=== PATIENT | female | born 1965 | race Caucasian/White ===

== ENCOUNTER → 2016-11-12 | Outpatient (CLI) | payer OTHER ==
[~2016-11-12] MED LIST: ACET-1256 PO; OXYC1TAB3 PO
[2016-11-12 18:24] LABS: BASO ABS # 0.06 K/uL (0-0.2); COMPLETE YES; HEMATOCRIT 41.8 % (37-47); IG% 0.2 %; LYMPH % 34.4 %; LYMPH ABS # 2.08 K/uL (1.2-3.4); MEAN CELL VOLUME 97.2 fL (80-100); MEAN CORPUSCULAR HEMOGLOBIN 32.8 pg (25-34); MEAN CORPUSCULAR HGB CONC 33.7 g/dl (32-36); MONO % 7.8 %; NEUT % 52.6 %; PLATELET COUNT 194 K/uL (130-400); WHITE BLOOD COUNT 6.05 K/uL (4.8-10.8)
[2016-11-12 18:39] LABS: ALT/SGPT 23 U/L (12-78); AST/SGOT 9 U/L (15-37); BLOOD UREA NITROGEN 19 mg/dl (7-18); BUN/CREATININE RATIO 21.3 (10-20); CALCIUM 8.7 mg/dl (8.5-10.1); CARBON DIOXIDE 27 mmol/L (21-32); CHLORIDE 109 mmol/L (98-107); CREATININE 0.87 mg/dl (0.60-1.20); GLUCOSE 84 mg/dl (70-99); POTASSIUM 3.9 mmol/L (3.5-5.1); SODIUM 145 mmol/L (136-145)
[2016-11-12 18:49] LABS: ALB/GLOB RATIO 1.2 (0.9-2); ALKALINE PHOSPHATASE 72 U/L (45-117)
[2016-11-12 20:01] LABS: LYME DISEASE AB IGG NEG (NEG); LYME DISEASE AB IGM NEG (NEG)
[2016-11-13 06:41] LABS: ESTIMATED AVERAGE GLUCOSE 103 mg/dl; HA1C FLAG Normal (Normal)
== END | disposition home or self-care (01) ==
LOC: C.LABMFLN 14:47
PROVIDERS: ATTEND Family Medicine
DX: R23.2 Flushing (principal); G62.9 Polyneuropathy, unspecified

== ENCOUNTER → 2017-03-24 | Outpatient (CLI) | payer OTHER ==
[~2017-03-24] MED LIST changes: +ASCO500T16 PO; +CHOL1000 PO; +CYAN500T13 PO; +GABA-113 PO; +MELO7.5T5 PO
--- NOTE | 2017-03-24 12:41 | DIAGNOSTIC IMAGING REPORT ---
LEFT ANKLE MIN 3 VIEWS ROUTINE CLINICAL HISTORY: ANKLE PAIN pain COMPARISON: None. DISCUSSION: No acute bony abnormality. Heel spur. Ankle is aligned anatomically. Cortical margins appear to be intact. There is no evidence for soft tissue swelling. IMPRESSION: Heel spur. No acute bony abnormality. Electronically signed by: Vincenzo El M.D. 03/24/2017 12:40 PM Dictated Date/Time: 03/24/2017 12:39 PM
--- NOTE | 2017-03-24 12:43 | DIAGNOSTIC IMAGING REPORT ---
RIGHT FOOT 3 VIEWS CLINICAL HISTORY: Chronic right foot pain. FINDINGS: 3 views of the right foot are obtained. No prior studies are available for comparison at the time of dictation. The skeletal structures are well mineralized. No fracture is seen. The fifth proximal phalanx appears diminutive. No similar changes are seen in the remaining phalanges. No erosive change is clearly seen. The joint spaces are preserved. The overlying soft tissues are within normal limits. A tiny plantar calcaneal enthesophyte is noted. IMPRESSION: 1. No acute bony abnormality is seen in the right foot. 2. The fifth proximal phalanx is diminutive. This may be on a congenital basis. Clinical correlation will be required. Electronically signed by: Atif Hsu M.D. 03/24/2017 12:42 PM Dictated Date/Time: 03/24/2017 12:39 PM
--- NOTE | 2017-03-24 12:46 | DIAGNOSTIC IMAGING REPORT ---
LEFT FOOT MIN 3 VIEWS ROUTINE CLINICAL HISTORY: PAIN,FOOT,CHRONIC pain COMPARISON: None. DISCUSSION: No acute bony abnormality. Cortical margins appear to be intact. No evidence for abnormal periosteal reaction. Findings of prior partial resection distal aspect proximal phalanx fifth toe. This is a nonacute finding. Heel spur. Subtalar joint is unremarkable. There is no evidence for soft tissue swelling. IMPRESSION: Findings of degenerative and postoperative change. Heel spur. No acute bony abnormality. Electronically signed by: Vincenzo El M.D. 03/24/2017 12:45 PM Dictated Date/Time: 03/24/2017 12:43 PM
== END | disposition home or self-care (01) ==
LOC: C.RAD1850 12:06
PROVIDERS: ATTEND Family Medicine
DX: M25.572 Pain in left ankle and joints of left foot (principal); M79.672 Pain in left foot; M79.671 Pain in right foot; M77.32 Calcaneal spur, left foot; M19.072 Primary osteoarthritis, left ankle and foot; R93.7 Abnormal findings on diagnostic imaging of other parts of musculoskeletal system

== ENCOUNTER → 2017-06-10 | Outpatient (CLI) | payer BC ==
[~2017-06-10] MED LIST changes: -ASCO500T16 PO; -CHOL1000 PO; -CYAN500T13 PO; -GABA-113 PO; -MELO7.5T5 PO
[2017-06-10 11:05] LABS: URINE APPEARANCE CLEAR (CLEAR); URINE BILIRUBIN NEG (NEG); URINE COLOR YELLOW; URINE EPITHELIAL CELL AUTO 20-30 /lpf (0-5); URINE NITRITE NEG (NEG); URINE PH 5.5 (4.5-7.5); URINE SPECIFIC GRAVITY 1.023 (1.000-1.030); UROBILINOGEN NEG (NEG)
[2017-06-10 11:13] LABS: MANUAL MICROSCOPIC REQUIRED? NO; REVIEW REQ? NO
== END | disposition home or self-care (01) ==
LOC: C.LAB 12:02
PROVIDERS: ATTEND Family Medicine
DX: N39.0 Urinary tract infection, site not specified (principal)

== ENCOUNTER → 2017-06-15 | Outpatient (CLI) | payer BC, OTHER ==
[2017-06-15 11:32] LABS: CHOLESTEROL/HDL RATIO 2.9
[2017-06-18 14:37] LABS: ALBUMIN 4.3 G/DL (3.8-4.8); GAMMA GLOBULIN 0.8 G/DL (0.8-1.7); TOTAL PROTEIN 6.7 G/DL (6.2-8.3); VITAMIN B6** TC 926 11.2 ng/mL (2.1-21.7)
== END | disposition home or self-care (01) ==
LOC: C.LABSPEC 16:29
PROVIDERS: ATTEND Family Medicine
DX: G60.9 Hereditary and idiopathic neuropathy, unspecified (principal)

== ENCOUNTER → 2017-07-30 | Outpatient (CLI) | payer BC ==
--- NOTE | 2017-07-30 12:29 | MAMMOGRAPHY REPORT ---
BILATERAL DIGITAL SCREENING MAMMOGRAM TOMOSYNTHESIS WITH CAD: 07/30/2017 CLINICAL HISTORY: Routine screening. Patient has no complaints. TECHNIQUE: Breast tomosynthesis in addition to standard 2D mammography was performed. Current study was also evaluated with a Computer Aided Detection (CAD) system. COMPARISON: Comparison is made to exams dated: 04/15/2016 mammogram, 04/13/2015 mammogram, 01/25/2014 m ammogram, 01/03/2011 mammogram, 01/10/2013 mammogram, and 01/09/2012 mammogram - [facility]. BREAST COMPOSITION: There are scattered areas of fibroglandular density in both breasts. FINDINGS: No suspicious masses, calcifications, or areas of architectural distortion are noted in ei ther breast. There has been no significant interval change compared to prior exams. Left medial katelin st asymmetry on the cc view is stable dating back to at least the 2008 exam. IMPRESSION: ACR BI-RADS CATEGORY 2: BENIGN There is no mammographic evidence of malignancy. A 1 year screening mammogram is recommended. The pa tient will receive written notification of the results. Approximately 10% of breast cancers are not detected with mammography. A negative mammographic report should not delay biopsy if a clinically suggestive mass is present. Marly Mac M.D. ah/:07/30/2017 07:44:26 Parboiler: Ronda MANN)(M), [facility] letter sent: Normal 1/2 BI-RADS Code: ACR BI-RADS Category 2: Benign
== END | disposition home or self-care (01) ==
LOC: C.MAMM 07:14
PROVIDERS: ATTEND Obstetrics & Gynecology
DX: Z12.31 Encounter for screening mammogram for malignant neoplasm of breast (principal)

== ENCOUNTER → 2017-10-05 | Outpatient (CLI) | payer BC ==
[~2017-10-05] MED LIST changes: -ACET-1256 PO; +ASCO500T16 PO; +CHOL1000 PO; +CYAN500T13 PO; +GABA-113 PO; +MELO7.5T5 PO
--- NOTE | 2017-10-05 14:44 | DIAGNOSTIC IMAGING REPORT ---
L FOOT MIN 3 VIEWS CLINICAL HISTORY: Left foot fracture. COMPARISON: Left foot radiograph September 05, 2017 per FINDINGS: Alignment of the left tarsometatarsal joints is anatomic. Note is made of a 6 mm linear radiodensity which projects over the plantar aspect of the anterior process of the calcaneus shown only on lateral projection. There is a nondisplaced fracture within the base of the left fifth metatarsal with intra-articular extension. Fracture line is more conspicuous than on prior exam. There is no significant callus formation. There may be slight sclerosis along the fracture margins. Deformity of the distal aspect of the proximal phalanx of left fifth toe is chronic and may be postsurgical. No additional fractures are identified. IMPRESSION: 1. Nondisplaced fracture within the base of the left fifth metatarsal with intra-articular extension. No significant callus formation. Suggestion of slight sclerosis along the fracture margins. 2. 6 mm linear radiodensity projecting over the plantar aspect of the anterior process of the calcaneus on lateral projection. This is not shown on the other views. Artifact is favored although a radiopaque foreign body could appear similar. This was not present on prior exam. Electronically signed by: Carlos Summers M.D. 10/05/2017 2:43 PM Dictated Date/Time: 10/05/2017 2:39 PM
== END | disposition home or self-care (01) ==
LOC: C.RDSM 14:00
PROVIDERS: ATTEND Family Medicine
DX: S92.352A Displaced fracture of fifth metatarsal bone, left foot, initial encounter for closed fracture (principal); X58.XXXA Exposure to other specified factors, initial encounter

== ENCOUNTER → 2017-10-19 | Outpatient (CLI) | payer BC ==
--- NOTE | 2017-10-19 16:53 | DIAGNOSTIC IMAGING REPORT ---
L FOOT MIN 3 VIEWS CLINICAL HISTORY: 51 years-old Female presenting with LEFT FOOT PAIN. TECHNIQUE: Frontal, oblique, and lateral views of the left foot were obtained. COMPARISON: 10/05/2017. FINDINGS: Previously noted nondisplaced fracture at the base of the fifth metatarsal remains apparent. No commencing evidence of greater osseous bridging. No malalignment. The previously noted linear radiopaque foreign body in the plantar soft tissues is no longer apparent. Prominent enthesophyte at the origin of the plantar fascia. Posttraumatic changes of the proximal interphalangeal joint of the fifth toe, unchanged. IMPRESSION: No significant change in appearance of the fracture at the base of the fifth metatarsal with apparent nonunion. Electronically signed by: Carlin Berkowitz M.D. 10/19/2017 4:51 PM Dictated Date/Time: 10/19/2017 4:49 PM
== END | disposition home or self-care (01) ==
LOC: C.RDSM 13:52
PROVIDERS: ATTEND Family Medicine
DX: M79.672 Pain in left foot (principal)

== ENCOUNTER → 2017-11-10 | Outpatient (CLI) | payer BC ==
--- NOTE | 2017-11-10 16:54 | DIAGNOSTIC IMAGING REPORT ---
L FOOT MIN 3 VIEWS CLINICAL HISTORY: LEFT FOOT PAIN COMPARISON: 10/19/2017 DISCUSSION: The bones are mildly osteopenic. There is a healing transverse fracture through the base of the fifth metatarsal. The fracture line is still visualized. There is a plantar calcaneal spur. IMPRESSION: No change in the alignment of the transverse fracture through the base the fifth metatarsal. The fracture line while still visualized is less conspicuous. Electronically signed by: Rohan Coulter M.D. 11/10/2017 4:52 PM Dictated Date/Time: 11/10/2017 4:51 PM
== END | disposition home or self-care (01) ==
LOC: C.RDSM 10:21
PROVIDERS: ATTEND Family Medicine
DX: M79.672 Pain in left foot (principal)

== ENCOUNTER → 2017-12-15 | Outpatient (CLI) | payer BC ==
--- NOTE | 2017-12-15 16:06 | DIAGNOSTIC IMAGING REPORT ---
L FOOT MIN 3 VIEWS CLINICAL HISTORY: 52 years-old Female presenting with NONDISPLACED FX OF LEFT 5TH METATARSAL BONE. TECHNIQUE: Frontal, oblique, and lateral views of the left foot were obtained. COMPARISON: 11/10/2017. FINDINGS: Redemonstration of the nondisplaced fracture of the base of the fifth metatarsal, which extends into the cuboid-fifth metatarsal articulation. The fracture plane is less apparent. No new malalignment. Mild subcutaneous edema may be present diffusely. No new abnormality. Enthesophyte at the inferior calcaneus noted. IMPRESSION: Continued decreased visualization of the nondisplaced intra-articular fracture plain at the base of the fifth metatarsal. No new malalignment. Electronically signed by: Carlin Berkowitz M.D. 12/15/2017 4:05 PM Dictated Date/Time: 12/15/2017 4:03 PM
== END | disposition home or self-care (01) ==
LOC: C.RDSM 15:49
PROVIDERS: ATTEND Family Medicine
DX: S92.355G Nondisplaced fracture of fifth metatarsal bone, left foot, subsequent encounter for fracture with delayed healing (principal); X58.XXXD Exposure to other specified factors, subsequent encounter; Z88.0 Allergy status to penicillin

== ENCOUNTER → 2018-05-20 | Outpatient (CLI) | payer OTHER ==
[~2018-05-20] MED LIST changes: -OXYC1TAB3 PO
== END | disposition home or self-care (01) ==
LOC: C.LABMFLN 07:09
PROVIDERS: ATTEND Family Medicine
DX: M15.9 Polyosteoarthritis, unspecified (principal); Z13.220 Encounter for screening for lipoid disorders; Z13.1 Encounter for screening for diabetes mellitus

== ENCOUNTER 2019-12-31 01:37 | Inpatient (IN) ==
[2019-12-31] MEDS ORDERED: SODIUM CHLORIDE 0.9% 1000ML 1,000 ML IV SCH (02:15)
[2019-12-31] MEDS ORDERED: KETOROLAC 30 MG/ML VIAL IV STA (02:15)
[2019-12-31] MEDS ORDERED: ONDANSETRON INJ 2 MG/ML 2 ML VIAL IV STA (02:15)
[2019-12-31] MEDS: MoRPHine SULFATE 4 MG/ML 1 ML CARP\\VIAL IV PRN ×2 (02:24→05:48)
[2019-12-31 02:27] LABS: Basophils # (auto) 0.02 K/uL (0-0.2); Basophils % (auto) 0.2 %; Eosinophils # (auto) 0.08 K/uL (0-0.5); Eosinophils % (auto) 0.9 %; Hematocrit (blood only) 42.5 % (37-47); Hemoglobin 14.3 g/dL (12.0-16.0); Immature Granulocytes # (auto) 0.01 K/uL (0.00-0.02); Immature Granulocytes % (auto) 0.1 %; Lymphocytes # (auto) 1.19 K/uL (1.2-3.4); Mean Corpuscular Hemoglobin 32.6 pg (25-34); Mean Corpuscular Hgb Conc 33.6 g/dL (32-36); Mean Corpuscular Volume 96.8 fL (80-100); Mean Platelet Volume 11.2 fL (7.4-10.4); Monocytes # (auto) 0.38 K/uL (0.11-0.59); Monocytes % (auto) 4.5 %; Neutrophils # (auto) 6.83 K/uL (1.4-6.5); Neutrophils % (auto) 80.3 %; Platelet Count 172 K/uL (130-400); RDW Coefficient of Variation 12.6 % (11.5-14.5); RDW Standard Deviation 44.9 fL (36.4-46.3); Red Blood Count 4.39 M/uL (4.2-5.4); White Blood Count 8.51 K/uL (4.8-10.8)
[2019-12-31 02:53] LABS: Albumin Level 3.6 gm/dl (3.4-5.0); BUN Creatinine Ratio 16.7 (10-20); Calcium 9.1 mg/dl (8.5-10.1); Creatinine Clr Calc Pharmacy 59.9 ml/min; Est GFR (African American) 61.4; Potassium 3.3 mmol/L (3.5-5.1)
[2019-12-31 02:55] LABS: Albumin Globulin Ratio 1.1 (0.9-2); Bilirubin,Total 0.3 mg/dl (0.2-1); Globulin 3.3 gm/dl (2.5-4.0); Total Protein 6.9 gm/dl (6.4-8.2)
[2019-12-31 04:11] LABS: Appearance Urine Clear (Clear); Bacteria Urine Automated Negative (Negative); Bilirubin Urine Negative (Negative); Blood Urine 2+ (Negative); Color Urine Yellow; Glucose Urine UA Negative (Negative); Ketones Urine Negative (Negative); Leukocyte Esterase Urine Trace (Negative); Nitrite Urine Negative (Negative); Protein Urine Negative (Negative); RBC Urine Automated >30 /hpf (0-4); Specific Gravity Urine 1.014 (1.000-1.030); Urobilinogen Urine Negative (Negative); pH Urine 7.5 (4.5-7.5)
--- NOTE | 2019-12-31 05:21 | History & Physical Report ---
Date of Service December 31, 2019 Assessment & Plan (1) Calculus of distal left ureter: 5 mm distal left UVJ stone/mild to moderate left hydronephrosis- NPO NSS + KCl 20 mEq 100 mils per hour. Acetaminophen 650 mg p.o. every 6 hours PRN mild pain or temperature. Continue tamsulosin 0.4 mg daily Dilaudid 0.2 mg IV every 3 hours as needed severe pain. Zofran 4 mg IV every 6 hours as needed nausea or vomiting Follow urine culture and sensitivity. Cipro 400 mg IV every [address] Haley who is covering for Dr. Carranza. Present on Admission?: Yes (2) Hydronephrosis of left kidney: See above Present on Admission?: Yes (3) Anxiety: Continue Lexapro 10 mg p.o. bedtime. Present on Admission?: Yes (4) Benign essential hypertension: Continue metoprolol succinate 12.5 mg p.o. at bedtime. Present on Admission?: Yes (5) Idiopathic peripheral neuropathy: Gabapentin 600 mg p.o. twice daily Present on Admission?: Yes History of Present Illness Chief Complaint: The patient presents to the emergency department with complaint of left flank and lower abdomen and pelvic pain, with having had a KUB done as an outpatient which showed a 2.5 mm left ureteral stone. Primary Care Provider: Tamera Swenson MD The patient is a 54-year-old female with a past medical history including kidney stones, mixed incontinence, chronic UTIs, incomplete bladder emptying, hysterectomy, foot surgery, , spinal fusion, allergic rhinitis, anxiety, benign essential hypertension, idiopathic peripheral neuropathy and mild mitral regurgitation. She presents to the emergency department with an outside KUB performed which showed an approximate 2.5 mm left ureteral stone as a cause of her left flank and lower abdominal and pelvic pain. She follows with Dr. Corbin from urology for routine urologic care, and reports that her last kidney stone was about the year 2005 or 7. Allergies Allergy/AdvReac Type Severity Reaction Status Date / Time nitrofurantoin Allergy Severe Hives,SOB Verified 12/31/19 02:33 [From Macrobid] fexofenadine [From Lisa-D] Allergy Intermediate Hypertensio Verified 12/31/19 02:33 n Penicillins Allergy Intermediate HIVES Verified 02/29/20 02:33 pseudoephedrine Allergy Intermediate Hypertensio Verified 12/31/19 02:33 [From Lisa-D] n sulfamethoxazole Allergy Intermediate Nausea Verified 12/31/19 02:33 [From Bactrim] trimethoprim [From Bactrim] Allergy Intermediate nausea, Verified 12/31/19 02:33 diarrhea meperidine AdvReac Mild VOMITING Verified 12/31/19 02:33 Home Medications Home Medications Medication Instructions Recorded Confirmed Type metoprolol succinate 25 mg 12.5 mg PO HS #45 tab 04/15/19 12/31/19 Rx tablet,extended release 24 hr cyclobenzaprine 10 mg PO TID PRN 06/14/19 12/31/19 History gabapentin 600 mg tablet 600 mg PO BID #180 tab 10/03/19 12/31/19 Rx escitalopram oxalate 10 mg tablet 10 mg PO HS #90 tab 11/29/19 12/31/19 Rx methenamine hippurate 1 gram tablet 1 gm PO DAILY #90 tab 12/15/19 12/31/19 Rx tamsulosin 0.4 mg capsule 0.4 mg PO DAILY cap 12/16/19 12/31/19 History ciprofloxacin HCl 500 mg tablet 500 mg PO BID 7 Days #14 tab 12/30/19 12/31/19 Rx tramadol 50 mg tablet 50 mg PO TID PRN #14 tab 12/30/19 12/31/19 Rx Past Med/Surg History Social History Preferred Language: Indonesian Communication Ability: Effective Concession Supervisor Required: No Beliefs That Will Affect Care: None marital status: Current Living Situation: Spouse and Family current occupational status: employed Feels Safe at Home: Yes Smoking Status: Never smoker Second Hand Exposure: No ; Hx Alcohol Use: Yes Alcohol type: wine and hard liquor Hx Substance Use: No Review of Systems Review of Systems: The patient denies chest pain, palpitations, shortness of breath, dyspnea on exertion, cough, lower extremity swelling, sore throat, fevers, chills, sweats, vomiting, diarrhea , constipation, blood in stool, urinary frequency or urgency, lightheadedness, dizziness, headache, memory loss, loss of consciousness, rash, abnormal bruising or bleeding, imbalance, focal or generalized weakness, numbness or tingling in arms or legs, generalized arthralgias or myalgias, neck pain, or night sweats. The review of systems is otherwise negative other than for that already noted above, and at least 10 systems have been reviewed. Physical Exam Physical Exam: The patient is awake, alert and oriented 3, well developed and well nourished, normocephalic and atraumatic, lying in bed and in no acute distress. HEENT--PERRL, EOMI, mucous membranes and oropharynx dry. Neck--supple. No JVD. No bruits. Thyroid normal, trachea midline, no adenopathy. Heart--normal S1 and S2. No murmurs, rubs or gallops. Lungs--clear bilaterally, no respiratory distress, no accessory muscle use. Abdomen--normal bowel sounds and soft. Nontender. Nondistended. Extremities--no cyanosis or clubbing. No edema. There are good distal pulses b/l. Dermatologic--normal skin turgor, normal color, no abnormal lymph nodes, no rash. Neurologic--cranial nerves II through XII grossly intact. Rheumatologic--normal range of motion. Psychiatric--normal affect. Results & Data Vital Signs (Past 12 Hours) Vital Signs Pulse Pulse Resp BP BP Pulse Ox 12/31/19 03:48 89 18 126/83 94 12/31/19 01:51 89 24 160/91 H 99 Laboratory Results Laboratory Results WBC 8.51 K/uL (4.8-10.8) 12/31/19 02:19 RBC 4.39 M/uL (4.2-5.4) 12/31/19 02:19 Hgb 14.3 g/dL (12.0-16.0) 12/31/19 02:19 Hct 42.5 % (37-47) 12/31/19 02:19 MCV 96.8 fL (80-100) 12/31/19 02:19 MCH 32.6 pg (25-34) 12/31/19 02:19 MCHC 33.6 g/dL (32-36) 12/31/19 02:19 RDW Std Deviation 44.9 fL (36.4-46.3) 12/31/19 02:19 RDW Coeff of Tong 12.6 % (11.5-14.5) 12/31/19 02:19 Plt Count 172 K/uL (130-400) 12/31/19 02:19 MPV 11.2 fL (7.4-10.4) H 12/31/19 02:19 Immature Gran % (Auto) 0.1 % 12/31/19 02:19 Neut % (Auto) 80.3 % 12/31/19 02:19 Lymph % (Auto) 14.0 % 12/31/19 02:19 [place] % (Auto) 4.5 % 12/31/19 02:19 Eos % (Auto) 0.9 % 12/31/19 02:19 Baso % (Auto) 0.2 % 12/31/19 02:19 Immature Gran # (Auto) 0.01 K/uL (0.00-0.02) 12/31/19 02:19 Neut # (Auto) 6.83 K/uL (1.4-6.5) H 12/31/19 02:19 Lymph # (Auto) 1.19 K/uL (1.2-3.4) L 12/31/19 02:19 [place] # (Auto) 0.38 K/uL (0.11-0.59) 12/31/19 02:19 Eos # (Auto) 0.08 K/uL (0-0.5) 12/31/19 02:19 Baso # (Auto) 0.02 K/uL (0-0.2) 12/31/19 02:19 Sodium 141 mmol/L (136-145) 12/31/19 02:19 Potassium 3.3 mmol/L (3.5-5.1) L 12/31/19 02:19 Chloride 110 mmol/L (98-107) H 12/31/19 02:19 Carbon Dioxide 27 mmol/L (21-32) 12/31/19 02:19 Anion Gap 4.0 (3-11) 12/31/19 02:19 BUN 20 mg/dl (7-18) H 12/31/19 02:19 Creatinine 1.18 mg/dl (0.6-1.2) 12/31/19 02:19 Est Cr Clr Drug Dosing 59.9 ml/min 12/31/19 02:19 Est GFR ( Amer) 61.4 12/31/19 02:19 Est GFR (Non-Af Amer) 53.0 12/31/19 02:19 BUN/Creatinine Ratio 16.7 (10-20) 12/31/19 02:19 Glucose 137 mg/dl (70-99) H 12/31/19 02:19 Calcium 9.1 mg/dl (8.5-10.1) 12/31/19 02:19 Total Bilirubin 0.3 mg/dl (0.2-1) 12/31/19 02:19 AST 17 U/L (15-37) 12/31/19 02:19 ALT 24 U/L (12-78) 12/31/19 02:19 Alkaline Phosphatase 109 U/L (45-117) 12/31/19 02:19 Total Protein 6.9 gm/dl (6.4-8.2) 12/31/19 02:19 Albumin 3.6 gm/dl (3.4-5.0) 12/31/19 02:19 Globulin 3.3 gm/dl (2.5-4.0) 12/31/19 02:19 Albumin/Globulin Ratio 1.1 (0.9-2) 12/31/19 02:19 Urine Color Yellow 12/31/19 04:02 Urine Appearance Clear (Clear) 12/31/19 04:02 Urine pH 7.5 (4.5-7.5) 12/31/19 04:02 Ur Specific [place] 1.014 (1.000-1.030) 12/31/19 04:02 Urine Protein Negative (Negative) 12/31/19 04:02 Urine Glucose (UA) Negative (Negative) 12/31/19 04:02 Urine Ketones Negative (Negative) 12/31/19 04:02 Urine Blood 2+ (Negative) H 12/31/19 04:02 Urine Nitrite Negative (Negative) 12/31/19 04:02 Urine Bilirubin Negative (Negative) 12/31/19 04:02 Urine Urobilinogen Negative (Negative) 12/31/19 04:02 Ur Leukocyte Esterase Trace (Negative) H 12/31/19 04:02 Urine WBC (Auto) 5-10 /hpf (0-5) H 12/31/19 04:02 Urine RBC (Auto) >30 /hpf (0-4) H 12/31/19 04:02 U Hyaline Cast (Auto) 1-5 /lpf (0-5) 12/31/19 04:02 U Epithel Cells (Auto) 10-20 /lpf (0-5) H 12/31/19 04:02 Urine Bacteria (Auto) Negative (Negative) 12/31/19 04:02 Diagnostic Findings [facility] Patient: AMPARO BERGMAN (Female) : 69 Status: ER Date: 12/31/19 02:59 Room #: History: left flank pain hx stoners Slices: [phone] Priors: Tech: Iglesia Espinoza @ [phone] Exams: CT ABDOMEN & PELVIS Without Contrast Accession Numbers: [id number] Preliminary Findings Only See Final Report For Complete Findings CT ABDOMEN & PELVIS Without Contrast: 5 mm calculus located at the left UVJ. Mild to moderate upstream dilatation of the collecting system. Left renal enlargement and perinephric stranding. Findings are likely obstructive but would correlate clinically to exclude superimposed infection. No appendicitis, free air, free fluid or bowel obstruction. Prior cholecystectomy. Distal colonic diverticulosis. Radiologist: Augustus Chowdhury M.D. Study ready at 03:09 and initial results transmitted at 03:35 *This report constitutes a preliminary interpretation only. Non-acute findings felt to be unrelated to the clinical presentation may not be discussed in this report. The study will be interpreted and a final report will be generated by the local Radiologist the following shift. To reach the hospital radiology department call [phone]. If a discrepancy is found between the preliminary and final interpretations of this study, please notify us via our Client Portal at [email or web address] QA [email or web address].You can also fax this report with a description of the discrepancy, or include the final report, to our daytime fax number [phone].If faxing, please indicate the severity of discrepancy using one of the following categories: [ ] 1 - Agree/Informational [ ] 2 - Unlikely to Affect Management [ ] 3 - Possible Eventual Change of Management [ ] 4 - Probable Immediate Change of Management For all other patient related information, please fax us at [phone]. [id number] Code Status & VTE Plan Code Status Full code VTE Prophylaxis Plan VTE Prophylaxis will be ordered: Yes PG Care Time/CCT Total # of Minutes Spent Total Time Spent with Patient: Total time spent is greater than 50% in coordination of care (as documented) at patient's floor/unit and/or counseling patient: Coding Level of Care Code 63894 Initial Inpt Care Lvl 2 Diagnoses Calculus of distal left ureter N20.1 Hydronephrosis of left kidney N13.30 Anxiety F41.9 Benign essential hypertension I10 Idiopathic peripheral neuropathy G60.9
[2019-12-31] MEDS ORDERED: ACETAMINOPHEN 325 MG TAB PO PRN (06:25)
[2019-12-31] MEDS: ONDANSETRON INJ 2 MG/ML 2 ML VIAL IV PRN ×2 (07:39→17:21)
[2019-12-31] MEDS: HYDROmorphone INJ 0.5 MG/0.5 ML SYR IV PRN ×2 (07:39→19:45)
[2019-12-31] MEDS: NSS + 20MEQ KCL 20 MEQ/1,000 ML BAG IV SCH ×3 (07:40→23:51)
[2019-12-31] MEDS: FAMOTIDINE 20 MG in SYRINGE 3 ML IV SCH ×2 (07:40→19:34)
--- NOTE | 2019-12-31 07:57 | CT Scan Report ---
CT SCAN OF THE ABDOMEN AND PELVIS WITHOUT IV CONTRAST CLINICAL HISTORY: Left flank pain. COMPARISON STUDY: Abdominal CT dated 09/22/2019. TECHNIQUE: CT scan of the abdomen and pelvis is performed from the lung bases to the proximal femora. Images are reviewed in the axial, sagittal, and coronal planes. IV contrast was not administered for this examination as per the referring clinician. A dose lowering technique was utilized adhering to the principles of ALARA. CT DOSE: 675.35 mGy.cm FINDINGS: Lung bases: The heart is normal in size and without pericardial effusion. There is elevation of the r ight hemidiaphragm and bibasilar atelectasis. No airspace consolidation or pleural effusion is seen. A small hiatal hernia is noted. Liver: The unenhanced liver is normal in size, contour, and attenuation. There is mild central intrah epatic biliary ductal dilatation. A 1.5 cm cyst is noted in the left lobe. Gallbladder: Surgically absent noting clips in the gallbladder fossa. Spleen: Normal in size and attenuation. Pancreas: Unremarkable. Adrenal glands: Unremarkable. Kidneys: The unenhanced kidneys are normal in size. The left kidney is edematous. There is a 6 mm obs tructing calculus protruding from the left vesicoureteral junction seen on image #428. This causes mo derate left-sided hydroureteronephrosis. There is associated left-sided perinephric and peripelvic st randing/fluid. There are numerous additional small nonobstructing calculi present in both kidneys whi ch measure up to 5 mm. There is no right-sided hydronephrosis. There is no evidence of contour deform ing renal mass lesion. A circumaortic left renal vein is again noted. Abdominal vasculature: The abdominal aorta is normal in course and caliber noting scattered foci of a therosclerotic calcification. Bowel: There is no bowel obstruction. The appendix is well-visualized and normal. Peritoneum: There is no intraperitoneal free air or abdominal ascites. There is a fat-containing umbi lical hernia. Lymphadenopathy: None. Pelvic viscera: The bladder is normal as visualized. The uterus is surgically absent. Left ovarian fo llicles measure up to 3.1 cm. Skeletal structures: No lytic or blastic lesions are seen. There is lumbosacral spondylosis with post operative change from laminectomy and posterior fusion at L4-L5. IMPRESSION: 1. There is a 6 mm obstructing calculus protruding from the left vesicoureteral junction. This causes moderate left hydroureteronephrosis. 2. There are numerous additional nonobstructing calculi present in both kidneys. 3. Additional findings as above. ACT 112: Negative or not required by law. Electronically signed by: Atif Hsu M.D. 12/31/2019 7:56 AM
[2019-12-31] MEDS: CIPROFLOXACIN 400 MG/200 ML BAG IV SCH ×2 (08:51→19:33)
[2019-12-31] MEDS ORDERED: PROPOFOL IV EMULSION 10 MG/ML 20 ML VIAL IV ONE (09:52)
[2019-12-31] MEDS ORDERED: ONDANSETRON INJ 2 MG/ML 2 ML VIAL ONE (09:52)
[2019-12-31] MEDS ORDERED: LIDOCAINE HCL 2% 2 ML VIAL/AMP(20MG/ML) INFIL ONE (09:52)
[2019-12-31] MEDS ORDERED: DEXAMETHASONE SOD INJ 4 MG/ML VIAL ONE (09:52)
--- NOTE | 2019-12-31 10:01 | Urology Consultation ---
Date of Consultation December 31, 2019 Assessment & Plan (1) Calculus of distal left ureter: Distal left ureteral calculus She has been receiving Cipro on the floor Plan for cystoscopy, left ureteroscopy, laser lithotripsy and stent placement Risks, benefits, alternatives discussed as she is very anxious to move forward with surgery SERGO Consent on the chart, plan for OR this morning History of Present Illness Attending Physician: Real Murdock History of Present Illness 54-year-old female with a long history of kidney stones and urinary issues who follows with us as an outpatient but had an sudden change in symptoms starting 24 hours ago This necessitated an ER visit secondary to significant left flank pain and nausea Upon arrival in the ER she was scanned and found to have a distal left ureteral calculus with moderate hydronephrosis. She additionally has bilateral renal stones She is subjectively improved this morning but still with pain She would very much like to have her stones treated She has been afebrile She is nontoxic Allergies Allergy/AdvReac Type Severity Reaction Status Date / Time nitrofurantoin Allergy Severe Hives,SOB Verified 12/31/19 02:33 [From Macrobid] fexofenadine [From Lisa-D] Allergy Intermediate Hypertensio Verified 12/31/19 02:33 n Penicillins Allergy Intermediate HIVES Verified 12/31/19 02:33 pseudoephedrine Allergy Intermediate Hypertensio Verified 12/31/19 02:33 [From Lisa-D] n sulfamethoxazole Allergy Intermediate Nausea Verified 12/31/19 02:33 [From Bactrim] trimethoprim [From Bactrim] Allergy Intermediate nausea, Verified 12/31/19 02:33 diarrhea meperidine AdvReac Mild VOMITING Verified 12/31/19 02:33 Home Medications Home Medications Medication Instructions Recorded Confirmed Type metoprolol succinate 25 mg 12.5 mg PO HS #45 tab 04/15/19 12/31/19 Rx tablet,extended release 24 hr cyclobenzaprine 10 mg PO TID PRN 06/14/19 12/31/19 History gabapentin 600 mg tablet 600 mg PO BID #180 tab 10/03/19 12/31/19 Rx escitalopram oxalate 10 mg tablet 10 mg PO HS #90 tab 11/29/19 12/31/19 Rx methenamine hippurate 1 gram tablet 1 gm PO DAILY #90 tab 12/15/19 12/31/19 Rx tamsulosin 0.4 mg capsule 0.4 mg PO DAILY cap 12/16/19 12/31/19 History ciprofloxacin HCl 500 mg tablet 500 mg PO BID 7 Days #14 tab 12/30/19 12/31/19 Rx tramadol 50 mg tablet 50 mg PO TID PRN #14 tab 12/30/19 12/31/19 Rx Patient History Medical History Accidental needlestick injury with exposure to body fluid (Inactive) Allergic rhinitis (Chronic) Anxiety (Chronic) Arthritis Benign essential hypertension (Chronic) Generalized osteoarthritis of multiple sites (Chronic) Idiopathic peripheral neuropathy (Chronic) Kidney stones Mild mitral regurgitation (Chronic) Surgical History Fusion of spine LUMBAR H/O foot surgery History of delivery X 2 History of cholecystectomy History of hysterectomy History of tooth extraction Nausea and vomiting after administration of anesthetic agent Family History Grandmother (Paternal) Diabetes Heart disease Mother Hypertension Family history of reaction to anesthesia PONV Father Hypertension Family history of reaction to anesthesia PONV Grandmother (Maternal) Breast cancer Other Dyslipidemia Denies family history of Prostate cancer Social History Preferred Language: Lebanese Communication Ability: Effective Veterinary Virus Serum Inspector Required: No Beliefs That Will Affect Care: None marital status: Current Living Situation: Family current occupational status: employed Feels Safe at Home: Yes Smoking Status: Never smoker Second Hand Exposure: No ; Hx Alcohol Use: Yes Alcohol type: wine and hard liquor Hx Substance Use: No Review of Systems Review of Systems: All systems reviewed & are unremarkable except as noted in HPI & below Constitutional: no fever, no chills and no fatigue Eyes: no worsening vision Ear, Nose, Mouth, Throat: no facial pain and no pain with swallowing Respiratory: no cough and no dyspnea Cardiovascular: no chest pain and no palpitations Gastrointestinal: + abdominal pain and + nausea; no vomiting Genitourinary: + flank pain; no dysuria, no difficulty urinating, no urinary frequency and no hematuria Musculoskeletal: no back pain Integumentary: no rash and no urticaria Neurologic: no gait abnormality and no unsteadiness Psychiatric: no behavioral changes and no depression Endocrine: no fatigue Physical Exam Constitutional: well developed and well nourished Neck: neck nontender Respiratory: normal respiratory effort; no respiratory distress and does not use accessory muscles Cardiovascular: Rate/Rhythm: regular rate Vessels: radial pulses present Extremities: no edema Gastrointestinal (Abdomen): Inspection/Auscultation: abdomen normal to inspection Percussion/Palpation: abdomen soft; abdomen nontender and no guarding Musculoskeletal: Head/Neck/Chest: normocephalic and head atraumatic Extremities: extremities normal to inspection Skin: no rashes and no lesions Trauma: no evidence of skin trauma Neurologic: awake; not obtunded Speech / Cognition: normal speech Motor/Sensory: no tremor Psychiatric: Orientation: alert and oriented x 3 Lymphatic: no lymphadenopathy Results & Data Vital Signs (Past 12 Hours) Vital Signs Temp Pulse Pulse Pulse Resp BP BP 12/31/19 08:00 36.8 C 71 18 144/77 H 12/31/19 06:10 36.7 C 68 12 135/87 12/31/19 05:47 74 18 133/76 12/31/19 03:48 89 18 126/83 12/31/19 01:51 89 24 160/91 H Pulse Ox 12/31/19 08:00 98 12/31/19 06:10 96 12/31/19 05:47 96 12/31/19 03:48 94 12/31/19 01:51 99 PG Care Time/CCT Total # of Minutes Spent Total Time Spent with Patient: Total time spent is greater than 50% in coordination of care (as documented) at patient's floor/unit and/or counseling patient: Coding Level of Care Code 27053 Inpt Consult Level 4 Diagnoses Calculus of distal left ureter N20.1
[2019-12-31] MEDS ORDERED: IOTHALAMATE MEGLUMINE II 17.2% 250 ML VIAL ONE (10:17)
--- NOTE | 2019-12-31 10:19 | Anesthesiology Consultation ---
Date of Service December 31, 2019 Assessment & Plan (1) Encounter for pre-operative examination: Chart Review Chart Review: Acceptable Risk for Surgery and Patient NOT seen in Pre Admission Testing Consults Requested none ASA [id number] Proposed Anesthesia Anesthesia Type: MAC Risk / Benefits Reviewed With: PT / POA / Parent / Guardian, Accepts Plan and I nformed Consent Obtained History Surgery Operation Date: 12/31/19 10:15 Proposed Procedures p Cystoscopy, left ureteroscopy, possible laser lithotripsy, possible left ureteral stent insertion - Jordi Haley MD Height/Weight Height: 5 ft 4 in Weight: 88.4 kg Allergies Allergy/AdvReac Type Severity Reaction Status Date / Time nitrofurantoin Allergy Severe Hives,SOB Verified 12/31/19 02:33 [From Macrobid] fexofenadine [From Lisa-D] Allergy Intermediate Hypertensio Verified 12/31/19 02:33 n Penicillins Allergy Intermediate HIVES Verified 12/31/19 02:33 pseudoephedrine Allergy Intermediate Hypertensio Verified 12/31/19 02:33 [From Lisa-D] n sulfamethoxazole Allergy Intermediate Nausea Verified 12/31/19 02:33 [From Bactrim] trimethoprim [From Bactrim] Allergy Intermediate nausea, Verified 12/31/19 02:33 diarrhea meperidine AdvReac Mild VOMITING Verified 12/31/19 02:33 Medications Home Medications Medication Instructions Recorded Confirmed Last Taken metoprolol succinate 25 mg 12.5 mg PO HS #45 tab 04/15/19 12/31/19 09/14/19 16:30 tablet,extended release 24 hr cyclobenzaprine 10 mg PO TID PRN 06/14/19 12/31/19 07/21/19 gabapentin 600 mg tablet 600 mg PO BID #180 tab 10/03/19 12/31/19 Unknown escitalopram oxalate 10 mg tablet 10 mg PO HS #90 tab 11/29/19 12/31/19 Unknown methenamine hippurate 1 gram tablet 1 gm PO DAILY #90 tab 12/15/19 12/31/19 Unknown tamsulosin 0.4 mg capsule 0.4 mg PO DAILY cap 12/16/19 12/31/19 Unknown ciprofloxacin HCl 500 mg tablet 500 mg PO BID 7 Days #14 tab 12/30/19 12/31/19 Unknown tramadol 50 mg tablet 50 mg PO TID PRN #14 tab 12/30/19 12/31/19 12/30/19 23:15 50 mg Active Medications Generic Name Dose Route Start Last Admin Trade Name Mary PRN Reason Stop Dose Admin Hydromorphone HCl 0.2 mg 12/31/19 06:25 12/31/19 07:39 Dilaudid IV 01/14/20 06:24 0.2 mg Q3H PRN Administration Severe Pain 7,8,9,10 Potassium Chloride/Sodium Chloride 20 meq in 1,000 mls @ 100 mls/hr 12/31/19 06:25 12/31/19 07:40 Normal Saline W/20 Meq Kcl IV 01/30/20 06:24 100 mls/hr .Q10H ANA MARIA Administration Ciprofloxacin 400 mg in 200 mls @ 200 mls/hr 12/31/19 08:00 12/31/19 08:51 Cipro IV 01/10/20 07:59 200 mls/hr Q12H ANA MARIA Administration Famotidine 20 mg/ Syringe 5 mls @ 2.5 mls/min 12/31/19 07:00 12/31/19 07:40 IV 01/30/20 06:59 2.5 mls/min Q12H ANA MARIA Administration Ondansetron HCl 4 mg 12/31/19 06:25 12/31/19 07:39 Zofran IV 01/30/20 06:24 4 mg Q6H PRN Administration Nausea NPO Date Last Intake of Fluids: 12/30/19 Time Last Intake of Fluids: 23:00 Date Last Intake of Solids: 12/30/19 Time Last Intake of Solids: 23:00 Past Medical History Medical History Accidental needlestick injury with exposure to body fluid (Inactive) Allergic rhinitis (Chronic) Anxiety (Chronic) Arthritis Benign essential hypertension (Chronic) Generalized osteoarthritis of multiple sites (Chronic) Idiopathic peripheral neuropathy (Chronic) Kidney stones Mild mitral regurgitation (Chronic) Exercise / Class Metabolic Activity II 4-5 Yardwork/Stairs/Walk up hill Past Family History Family History Grandmother (Paternal) Diabetes Heart disease Mother Hypertension Family history of reaction to anesthesia PONV Father Hypertension Family history of reaction to anesthesia PONV Grandmother (Maternal) Breast cancer Other Dyslipidemia Denies family history of Prostate cancer Past Surgical History Surgical History Fusion of spine LUMBAR H/O foot surgery History of delivery X 2 History of cholecystectomy History of hysterectomy History of tooth extraction Nausea and vomiting after administration of anesthetic agent Past Anesthesia History No Hx of Anesthesia Complications History of PONV History of PONV and Hx of Motion Sickness Social History Smoking Status: Never smoker Do You Dip or Chew Tobacco: No Hx Alcohol Use: Yes Alcohol type: wine and hard liquor alcohol intake frequency: a few times a month Hx Substance Use: No substance use type: does not use Review of Systems Negative for chest pain or shortness of breath. Patient denies active symptoms of GERD. Some nausea last night but no vomiting. No nausea today. Physical Exam Vital Signs Last Vital Signs Temp 36.8 C 12/31/19 08:00 Pulse 71 12/31/19 08:00 Resp 18 12/31/19 08:00 BP 144/77 H 12/31/19 08:00 Pulse Ox 98 12/31/19 08:00 Constitutional + obese ENMT Mouth: no TMJ abnormality and oral opening not small Thyromental Distance: > or= 3.5 Finger Breadths Mallampati Class: II Neck normal visual inspection; neck extension not limited Respiratory normal respiratory effort Auscultation: lungs clear to auscultation bilaterally Cardiovascular Rate/Rhythm: regular rate and regular rhythm Heart Sounds: no murmur Neurologic moves all extremities Psychiatric Orientation: alert and oriented x 3 Testing Laboratory Results 12/31/19 02:19 12/31/19 02:19 Urine Color Yellow 12/31/19 04:02 Urine Appearance Clear (Clear) 12/31/19 04:02 Urine pH 7.5 (4.5-7.5) 12/31/19 04:02 Ur Specific [place] 1.014 (1.000-1.030) 12/31/19 04:02 Urine Protein Negative (Negative) 12/31/19 04:02 Urine Glucose (UA) Negative (Negative) 12/31/19 04:02 Urine Ketones Negative (Negative) 12/31/19 04:02 Urine Nitrite Negative (Negative) 12/31/19 04:02 Ur Leukocyte Esterase Trace (Negative) H 12/31/19 04:02 Urine WBC (Auto) 5-10 /hpf (0-5) H 12/31/19 04:02 Urine RBC (Auto) >30 /hpf (0-4) H 12/31/19 04:02 U Hyaline Cast (Auto) 1-5 /lpf (0-5) 12/31/19 04:02 U Epithel Cells (Auto) 10-20 /lpf (0-5) H 12/31/19 04:02 Urine Bacteria (Auto) Negative (Negative) 12/31/19 04:02 Other Testing Electrocardiogram: 07/21/19 Findings: + NSR @ (76) Normal sinus rhythm Nonspecific T wave abnormality Abnormal ECG When compared with ECG of 08-FEB-2019 11:39, No significant change was found Confirmed by Kristopher Pineda ([id number]) on 07/21/2019 10:41:40 PM
[2019-12-31] MEDS ORDERED: SCOPOLAMINE 1.5 MG TDSY ONE (10:27)
[2019-12-31] MEDS ORDERED: ATROPINE SULFATE 0.1 MG/ML 10ML SYR IV PRN (10:40)
[2019-12-31] MEDS ORDERED: fentaNYL citrate 100 MCG/2 ML VIAL IV PRN (10:40)
[2019-12-31] MEDS ORDERED: SCOPOLAMINE 1.5 MG TDSY TD ONE (10:40)
[2019-12-31] MEDS ORDERED: HYDROmorphone INJ 1 MG/ML SYRINGE IV PRN (10:40)
[2019-12-31] MEDS ORDERED: ONDANSETRON INJ 2 MG/ML 2 ML VIAL IV PRN (10:40)
[2019-12-31] MEDS ORDERED: PROMETHAZINE HCL 12.5 MG in SODIUM CHLORIDE 0.9% 50 ML IV PRN (10:40)
[2019-12-31] MEDS ORDERED: ePHEDrine sulfate 50 MG/ML AMP IV PRN (10:40)
[2019-12-31] MEDS ORDERED: KETOROLAC 30 MG/ML VIAL ONE (10:43)
--- NOTE | 2019-12-31 11:13 | Operative Report ---
PG Post Operative Report Pre & Post Diagnosis Operation Date: 12/31/19 10:15 Pre-Op Diagnosis: LEFT UVJ STONE WITH MOD L HYDRONEPHROSIS Post-Op Diagnosis: LEFT UVJ STONE WITH MOD L HYDRONEPHROSIS I identified the patient and participated in the time-out.: Yes Procedure Operation Date: 12/31/19 10:15 Actual Procedures p Cystoscopy, left ureteroscopy, laser lithotripsy, left ureteral stent insertion(Left) - Jordi Haley MD Surgeon Loc Haley MD Lead Engineer none Estimated Blood Loss 0 Findings Consistent with Post-Op Diagnosis Specimens Stone for chemical analysis Description of Procedure The patient was identified in the preoperative holding area, appropriate informed consents were reviewed and completed and the patient was transferred to the operative suite. Upon arrival, appropriate antibiotics and anesthesia were administered and the patient was placed in dorsal lithotomy position and prepped and draped in sterile fashion. To begin the case I passed a 22 Danish cystoscope with 30 degree lens. Inspection revealed healthy-appearing mucosa with some mounding of the distal left ureter and UO, no stones were visualized protruding from the orifice. After full inspection I cannulated the left UO with a 5 Danish open-ended catheter and sensor wire. The wire advanced to the kidney without difficulty. There was some discharge of old urine immediately after passing the wire. I then withdrew the cystoscope and reentered with a semirigid ureteroscope. The scope was gently guided into the left distal ureter at which point I encountered a calculus. It was not impacted. It was brown in appearance. I passed a 365 m laser fiber and I broke it in half. I then broke each piece in half again and irrigated them out of the ureter without difficulty. I advanced the scope maximallyreaching a level above the blood vessels, and I encountered no other stones. I withdrew the scope and I placed a 6 Danish by 24 cm double-J ureteral stent seeing a good curl in the kidney and leaving a string attached to the distal end. The distal aspect of the string was taped to the right inner thigh. Stone pieces were irrigated out of the bladder and passed off the table for chemical analysis. The case was subsequently concluded. She was extubated and taken to the PACU in stable condition. There were no complications. I attest to the content of the Intraoperative Record and any orders documented therein. Any exceptions are noted below.
--- NOTE | 2019-12-31 11:50 | Anesthesiology Progress Note ---
Date of Service December 31, 2019 Anesthesia Post Procedure Vital Signs Vital Signs: Temp Pulse Pulse Pulse Pulse Resp BP 12/31/19 11:40 75 16 12/31/19 11:30 79 17 12/31/19 11:20 75 10 L 12/31/19 11:10 36.4 C L 78 8 L 12/31/19 08:00 36.8 C 71 18 12/31/19 06:10 36.7 C 68 12 12/31/19 05:47 74 18 12/31/19 03:48 89 18 12/31/19 01:51 89 24 160/91 H BP BP Pulse Ox 12/31/19 11:40 105/82 95 12/31/19 11:30 119/92 99 12/31/19 11:20 135/72 99 12/31/19 11:10 139/85 99 12/31/19 08:00 144/77 H 98 12/31/19 06:10 135/87 96 12/31/19 05:47 133/76 96 12/31/19 03:48 126/83 94 12/31/19 01:51 99 Pain Intensity Left Flank: Pain Intensity: 3 Transfer of Care Handoff Completed per policy Notes Mental Status: alert / awake / arousable and participated in evaluation Patient Amnestic to Procedure: Yes Nausea / Vomiting: adequately controlled Pain: adequately controlled Airway Patency, RR, SpO2: stable & adequate BP & HR: stable & adequate Hydration State: stable & adequate Anesthetic Complications: no major complications apparent and Pt Satisfied with anesthetic care
[2019-12-31] MEDS: TAMSULOSIN HCL 0.4 MG CAP PO SCH (12:09)
--- NOTE | 2019-12-31 12:46 | Fluoroscopy Report ---
INTRAOPERATIVE RADIOGRAPH CLINICAL HISTORY: Left ureteral stent placement. Fluoroscopy time: 6 seconds. FINDINGS: A single spot fluoroscopic image of the left upper quadrant from a retrograde ureterogram a nd ureteral stent placement procedure is correlated with abdominal CT dated 12/31/2019. The image show s the proximal end of a left ureteral stent projecting over the left renal pelvis. No calcifications are seen along the course of the stent. Fusion hardware is noted in the lower lumbar spine. IMPRESSION: Intraoperative image from a left ureteral stent placement procedure as above. Electronically signed by: Atif Hsu M.D. 12/31/2019 12:45 PM
[2019-12-31] MEDS ORDERED: CYCLOBENZAPRINE HCL 10 MG TAB PO PRN (16:02)
[2019-12-31] MEDS: CHECK SCOPOLAMINE PATCH PLACEMENT SCH ×2 (17:07→23:39)
--- NOTE | 2019-12-31 18:40 | Discharge Summary ---
Date of Service December 31, 2019 Admission HPI Per Admitting Provider The patient is a 54-year-old female with a past medical history including kidney stones, mixed incontinence, chronic UTIs, incomplete bladder emptying, hysterectomy, foot surgery, , spinal fusion, allergic rhinitis, anxiety, benign essential hypertension, idiopathic peripheral neuropathy and mild mitral regurgitation. She presents to the emergency department with an outside KUB performed which showed an approximate 2.5 mm left ureteral stone as a cause of her left flank and lower abdominal and pelvic pain. She follows with Dr. Corbin from urology for routine urologic care, and reports that her last kidney stone was about the year 2005 or . Discharge Data Allergies Allergy/AdvReac Type Severity Reaction Status Date / Time nitrofurantoin Allergy Severe Hives,SOB Verified 12/31/19 02:33 [From Macrobid] fexofenadine [From Lisa-D] Allergy Intermediate Hypertensio Verified 12/31/19 02:33 n Penicillins Allergy Intermediate HIVES Verified 12/31/19 02:33 pseudoephedrine Allergy Intermediate Hypertensio Verified 12/31/19 02:33 [From Lisa-D] n sulfamethoxazole Allergy Intermediate Nausea Verified 12/31/19 02:33 [From Bactrim] trimethoprim [From Bactrim] Allergy Intermediate nausea, Verified 12/31/19 02:33 diarrhea meperidine AdvReac Mild VOMITING Verified 12/31/19 02:33 Consultations 12/31/19 04:37 ED Decision to Admit Stat 12/31/19 06:25 Consult Case Management - Discharge Planning Routine Consult Urology Routine Procedures Performed Operation Date: 12/31/19 10:15 Actual Procedures p Cystoscopy, left ureteroscopy, laser lithotripsy, left ureteral stent insertion(Left) - Jordi Haley MD Ordered Studies 12/31/19 02:15 CT abd pelvis wo con Urgent 12/31/19 09:42 FL retrograde includes kub Routine Discharge Plan Discharge Items Reason For Visit: LEFT UVJ STONE WITH MOD L HYDRONEPHROSIS Follow-up/Referrals: Tamera Swenson MD [Primary Care Provider] - Medications and DC Order Prescriptions: No Action metoprolol succinate 25 mg tablet extended release 24 hr 12.5 mg PO HS Qty: 45 RF: 3 gabapentin 600 mg tablet 600 mg PO BID Qty: 180 RF: 1 escitalopram oxalate 10 mg tablet 10 mg PO HS Qty: 90 RF: 3 methenamine hippurate 1 gram tablet 1 gm PO DAILY Qty: 90 RF: 4 ciprofloxacin HCl 500 mg tablet 500 mg PO BID 7 Days Qty: 14 RF: 0 tramadol 50 mg tablet 50 mg PO TID PRN (Reason: pain) Qty: 14 RF: 0 tamsulosin 0.4 mg capsule 0.4 mg PO DAILY RF: 0 cyclobenzaprine 10 mg tablet 10 mg PO TID PRN (Reason: Muscle Spasm) RF: 0 Admission Data Admit Date/Time: 12/31/19 05:06 Attending Provider: Real Murdock Admit Provider: González Armas Primary Care Provider: Tamera Swenson Other Providers: González Armas ; Jordi Haley Coding
--- NOTE | 2019-12-31 18:46 | Hospitalist Progress Note ---
Date of Service December 31, 2019 Assessment & Plan (1) Calculus of distal left ureter: - CT with 6 mm obstructing calculus protruding from the LVJ with moderate L hydroureteronephrosis; numerous additional nonobstructing calculi in b/l kidneys - UCx from 12/27 - outpatient was coag neg mc (no urinalysis to actually see if a lot of epithelial cells present); UA on admission without bacteria -- Has been on Ciprofloxacin - could continue this for stone coverage - given new UA without bacteria can keep this as this Abx for coverage - Hasn't required any pain medication since procedure; Tylenol/Dilaudid PRN - Flomax daily - Urology following - stent and stone removal performed on - planning on stent removal tomorrow and likely D/C home (2) Hydronephrosis of left kidney: - Treatment as above (3) Anxiety: - Continue Lexapro 10 mg HS (4) Benign essential hypertension: - STABLE - Continue metoprolol succinate 12.5 mg HS (5) Idiopathic peripheral neuropathy: - STABLE - Gabapentin 600 mg BID Disposition: From home; await Urology stent removal tomorrow and likely return home Admission and Anticipated Discharge Date Admission Date: December 31, 2019 Subjective Patient seen after procedure. Feeling well and currently no pain. Tolerating diet as she was eating during my visit. Anticipates return home tomorrow after stent removal. Verbalizes no complaints Review of Systems Constitutional: no fever and no chills Respiratory: no cough and no dyspnea Cardiovascular: no chest pain Gastrointestinal: no abdominal pain, no nausea, no vomiting, no constipation and no diarrhea/loose stools Genitourinary: no dysuria Integumentary: no rash Neurologic: no tingling and no numbness Physical Exam Constitutional: WD/WN, vitals as above Eyes: + anicteric sclerae ENMT: Ears: no hearing impairment Neck: trachea midline Respiratory: normal respiratory effort, lungs clear to auscultation Cardiovascular: RRR, no murmur, no edema Gastrointestinal (Abdomen): Inspection/Auscultation: normal bowel sounds Percussion/Palpation: abdomen soft; abdomen nontender Musculoskeletal: no cyanosis or clubbing, extremities motor strength 5/5 Skin: no rashes, warm and dry Neurologic: moves all extremities Psychiatric: A+Ox3, euthymic affect Results & Data (MN) Vital Signs (Past 12 Hours) Vital Signs Temp Pulse Pulse Pulse Pulse Resp BP 12/31/19 15:00 36.8 C 64 18 118/74 12/31/19 14:01 36.8 C 65 15 120/62 12/31/19 13:00 36.8 C 72 16 129/76 12/31/19 12:30 36.4 C L 70 20 124/77 12/31/19 12:00 36.4 C L 70 16 115/74 12/31/19 11:54 37 C 71 16 115/71 12/31/19 11:40 75 16 105/82 12/31/19 11:30 79 17 119/92 12/31/19 11:20 75 10 L 135/72 12/31/19 11:10 36.4 C L 78 8 L 139/85 12/31/19 08:00 36.8 C 71 18 BP Pulse Ox 12/31/19 15:00 95 12/31/19 14:01 94 12/31/19 13:00 95 12/31/19 12:30 94 12/31/19 12:00 95 12/31/19 11:54 97 12/31/19 11:40 95 12/31/19 11:30 99 12/31/19 11:20 99 12/31/19 11:10 99 12/31/19 08:00 144/77 H 98 PG Care Time/CCT Total # of Minutes Spent Total Time Spent with Patient: Total time spent is greater than 50% in coordination of care (as documented) at patient's floor/unit and/or counseling patient: Coding Level of Care Code None Diagnoses Calculus of distal left ureter N20.1 Hydronephrosis of left kidney N13.30 Anxiety F41.9 Benign essential hypertension I10 Idiopathic peripheral neuropathy G60.9
[2019-12-31] MEDS: GABAPENTIN 600 MG TAB PO SCH (20:14)
[2019-12-31] MEDS ORDERED: METOPROLOL SUCC 25MG EXT REL TAB PO SCH (21:00)
[2019-12-31] MEDS ORDERED: ESCITALOPRAM OXALATE 10 MG TAB PO SCH (21:00)
--- NOTE | 2020-01-01 01:27 | Emergency Department Note ---
History of Present Illness General Chief complaint: Kidney Stone Stated complaint: KIDNEY STONE Time Seen by Provider: 12/31/19 02:09 History of Present Illness Maximum Pain Intensity: 0 This is a 54-year-old female presenting to the emergency department for evaluation of left-sided flank pain over the past 1 to 2 days. The patient does have a history of kidney stones and states this feels similar. She does follow with urology, and did see them yesterday where KUB seems to show a 3 or 4 mm ureteral calculi. The patient was started on Cipro and tramadol. She is not had fevers or chills. She feels like she is making urine is normal. She did have some mild pain throughout the day, but states now her pain is severe and a 10/10. She is nauseated. The pain does radiate into her left side groin. Home Medications Home Medications Medication Instructions Recorded Confirmed Type metoprolol succinate 25 mg 12.5 mg PO HS #45 tab 04/15/19 12/31/19 Rx tablet,extended release 24 hr cyclobenzaprine 10 mg PO TID PRN 06/14/19 12/31/19 History gabapentin 600 mg tablet 600 mg PO BID #180 tab 10/03/19 12/31/19 Rx escitalopram oxalate 10 mg tablet 10 mg PO HS #90 tab 11/29/19 12/31/19 Rx methenamine hippurate 1 gram tablet 1 gm PO DAILY #90 tab 12/15/19 12/31/19 Rx tamsulosin 0.4 mg capsule 0.4 mg PO DAILY cap 12/16/19 12/31/19 History ciprofloxacin HCl 500 mg tablet 500 mg PO BID 7 Days #14 tab 12/30/19 12/31/19 Rx tramadol 50 mg tablet 50 mg PO TID PRN #14 tab 12/30/19 12/31/19 Rx Allergies Allergy/AdvReac Type Severity Reaction Status Date / Time nitrofurantoin Allergy Severe Hives,SOB Verified 12/31/19 02:33 [From Macrobid] fexofenadine [From Lisa-D] Allergy Intermediate Hypertensio Verified 12/31/19 02:33 n Penicillins Allergy Intermediate HIVES Verified 12/31/19 02:33 pseudoephedrine Allergy Intermediate Hypertensio Verified 12/31/19 02:33 [From Lisa-D] n sulfamethoxazole Allergy Intermediate Nausea Verified 12/31/19 02:33 [From Bactrim] trimethoprim [From Bactrim] Allergy Intermediate nausea, Verified 12/31/19 02:33 diarrhea meperidine AdvReac Mild VOMITING Verified 12/31/19 02:33 Past Med/Surg History Medical History Accidental needlestick injury with exposure to body fluid (Inactive) Allergic rhinitis (Chronic) Anxiety (Chronic) Arthritis Benign essential hypertension (Chronic) Generalized osteoarthritis of multiple sites (Chronic) Idiopathic peripheral neuropathy (Chronic) Kidney stones Mild mitral regurgitation (Chronic) Surgical History Fusion of spine LUMBAR H/O foot surgery History of delivery X 2 History of cholecystectomy History of hysterectomy History of tooth extraction Nausea and vomiting after administration of anesthetic agent Family History Grandmother (Paternal) Diabetes Heart disease Mother Hypertension Family history of reaction to anesthesia PONV Father Hypertension Family history of reaction to anesthesia PONV Grandmother (Maternal) Breast cancer Other Dyslipidemia Denies family history of Prostate cancer Social History Preferred Language: Dutch Communication Ability: Effective Supervisor [employer] Required: No Beliefs That Will Affect Care: None marital status: Current Living Situation: Family current occupational status: employed Feels Safe at Home: Yes Smoking Status: Never smoker Second Hand Exposure: No ; Hx Alcohol Use: Yes Alcohol type: wine and hard liquor Hx Substance Use: No Review of Systems A total of 10 systems reviewed and were otherwise negative Physical Exam Vital Signs Vital Signs - 24 hr 12/31/19 01:51 12/31/19 03:48 Pulse Rate 89 Pulse Rate [Finger] 89 Respiratory Rate 24 18 Respiratory Effort / Characteristics Moaning Blood Pressure 160/91 H Blood Pressure [Right Arm] 126/83 Blood Pressure Mean 114 Blood Pressure Mean [Right Arm] 97 Blood Pressure Position Sitting Pulse Oximetry 99 94 Oxygen Delivery Method Room Air Room Air Sepsis Recent Fever Within 48 Hours No Sepsis Action Taken by Nursing No Action Required VITALS: Vitals are noted on the nurse's note and reviewed by myself. Vital signs stable. GENERAL: Well-developed, well-nourished, white female who appears in severe discomfort secondary to her stated complaint. She is crying and rolling back and forth in the bed splinting her left flank. HEAD: Normocephalic atraumatic. HEART: Regular rate and rhythm without murmurs gallops or rubs. LUNGS: Clear to auscultation bilaterally without wheezes, rales or rhonchi. No retractions or accessory muscle use. ABDOMEN: Positive normal bowel sounds x 4. Soft, nontender, without masses or organomegaly. No guarding or rebound tenderness. MUSCULOSKELETAL: No muscle atrophy, erythema, or edema noted. Full range of motion in all extremities. NEURO: Patient was alert and oriented to person place and time. CN II through XII grossly intact. SKIN: The skin was without rashes, erythema, edema, or bruising. Capillary refill less than 2 seconds. Course Administered Medications Escitalopram Oxalate (Lexapro Tab) 10 mg PO HS ANA MARIA Stop: 01/30/20 20:59 Last Admin: 12/31/19 20:14 Dose: 10 mg Documented by: [id number] Gabapentin (Neurontin) 600 mg PO BID ANA MARIA Stop: 01/30/20 20:59 Last Admin: 12/31/19 20:14 Dose: 600 mg Documented by: [id number] Hydromorphone HCl (Dilaudid) 0.2 mg IV Q3H PRN PRN Reason: Severe Pain 7,8,9,10 Stop: 01/14/20 06:24 Last Admin: 12/31/19 19:45 Dose: 0.2 mg Documented by: [id number] Admin: 12/31/19 07:39 Dose: 0.2 mg Documented by: [id number] Potassium Chloride/Sodium Chloride (Normal Saline W/20 Meq Kcl) 20 meq in 1,000 mls @ 100 mls/hr IV .Q10H ANA MARIA Stop: 01/30/20 06:24 Last Admin: 12/31/19 23:51 Dose: 100 mls/hr Documented by: [id number] Infusion: 12/31/19 23:51 Dose: 100 mls/hr Documented by: [id number] Infusion: 12/31/19 20:45 Dose: 100 mls/hr Documented by: [id number] Infusion: 12/31/19 19:40 Dose: 0 mls/hr Documented by: [id number] Infusion: 12/31/19 14:24 Dose: 100 mls/hr Documented by: [id number] Admin: 12/31/19 12:56 Dose: 100 mls/hr Documented by: [id number] Infusion: 12/31/19 12:56 Dose: 100 mls/hr Documented by: [id number] Admin: 12/31/19 07:40 Dose: 100 mls/hr Documented by: [id number] Ciprofloxacin (Cipro) 400 mg in 200 mls @ 200 mls/hr IV Q12H ANA MARIA Stop: 01/10/20 07:59 Last Infusion: 12/31/19 20:45 Dose: 0 mls/hr Documented by: [id number] Admin: 12/31/19 19:33 Dose: 200 mls/hr Documented by: [id number] Infusion: 12/31/19 09:51 Dose: 0 mls/hr Documented by: [id number] Admin: 12/31/19 08:51 Dose: 200 mls/hr Documented by: [id number] Famotidine 20 mg/ Syringe 5 mls @ 2.5 mls/min IV Q12H ANA MARIA Stop: 01/30/20 06:59 Last Admin: 12/31/19 19:34 Dose: 2.5 mls/min Documented by: [id number] Admin: 12/31/19 07:40 Dose: 2.5 mls/min Documented by: [id number] Metoprolol Succinate (Toprol Xl) 12.5 mg PO HS ANA MARIA Stop: 01/30/20 20:59 Last Admin: 12/31/19 20:14 Dose: 12.5 mg Documented by: [id number] Miscellaneous (Check Scopolamine Patch Placement) 1 ea N/A QS ANA MARIA Stop: 01/03/20 08:00 Last Admin: 12/31/19 23:39 Dose: 1 ea Documented by: [id number] Admin: 12/31/19 17:07 Dose: 1 ea Documented by: [id number] Ondansetron HCl (Zofran) 4 mg IV Q6H PRN PRN Reason: Nausea Stop: 01/30/20 06:24 Last Admin: 12/31/19 17:21 Dose: 4 mg Documented by: [id number] Admin: 12/31/19 07:39 Dose: 4 mg Documented by: [id number] Tamsulosin HCl (Flomax) 0.4 mg PO DAILY ANA MARIA Stop: 01/30/20 08:59 Last Admin: 12/31/19 12:09 Dose: 0.4 mg Documented by: [id number] Discontinued Medications Sodium Chloride (Nss 1000ml) 1,000 mls @ 999 mls/hr IV .Q1H1M ANA MARIA Stop: 12/31/19 03:15 Last Infusion: 12/31/19 03:36 Dose: 0 mls/hr Documented by: [id number] Admin: 12/31/19 02:24 Dose: 999 mls/hr Documented by: [id number] Iothalamate Meglumine (Cysto-Conray Ii) Confirm Administered Dose 250 ml .ROUTE .STK-MED ONE Stop: 12/31/19 10:18 Last Admin: 12/31/19 12:09 Dose: Not Given Documented by: [id number] Ketorolac Tromethamine (Toradol) 30 mg IV NOW STA Stop: 12/31/19 02:16 Last Admin: 12/31/19 02:24 Dose: 30 mg Documented by: [id number] Morphine Sulfate (Morphine Sulfate) 4 mg IV Q15M PRN PRN Reason: Pain Stop: 01/14/20 02:14 Last Admin: 12/31/19 05:48 Dose: 4 mg Documented by: [id number] Admin: 12/31/19 02:24 Dose: 4 mg Documented by: [id number] Ondansetron HCl (Zofran) 4 mg IV NOW STA Stop: 12/31/19 02:16 Last Admin: 12/31/19 02:24 Dose: 4 mg Documented by: [id number] Scopolamine (Transderm-Scop) Confirm Administered Dose 1.5 mg .ROUTE .STK-MED ONE Stop: 12/31/19 10:28 Last Admin: 12/31/19 12:09 Dose: Not Given Documented by: [id number] Medical Decision Making Differential Diagnosis Differential diagnosis: Etiologies such as biliary colic, cholecystitis, hepatitis, pancreatitis, cardiac disease, pancreatitis, gastritis, peptic ulcer disease, appendicitis, cystitis, diverticulitis, mesenteric ischemia, inflammatory bowel disease, ileus, bowel obstruction, testicular/adnexal torsion, aortic pathology, shingles, as well as others were considered Laboratory Data Result diagrams: 12/31/19 02:19 12/31/19 02:19 Lab Results 12/31/19 12/31/19 12/31/19 Range/Units 02:19 02:19 04:02 WBC 8.51 (4.8-10.8) K/uL RBC 4.39 (4.2-5.4) M/uL Hgb 14.3 (12.0-16.0) g/dL Hct 42.5 (37-47) % MCV 96.8 (80-100) fL MCH 32.6 (25-34) pg MCHC 33.6 (32-36) g/dL RDW Std Deviation 44.9 (36.4-46.3) fL RDW Coeff of Tong 12.6 (11.5-14.5) % Plt Count 172 (130-400) K/uL MPV 11.2 H (7.4-10.4) fL Immature Gran % (Auto) 0.1 % Neut % (Auto) 80.3 % Lymph % (Auto) 14.0 % [place] % (Auto) 4.5 % Eos % (Auto) 0.9 % Baso % (Auto) 0.2 % Immature Gran # (Auto) 0.01 (0.00-0.02) K/uL Neut # (Auto) 6.83 H (1.4-6.5) K/uL Lymph # (Auto) 1.19 L (1.2-3.4) K/uL [place] # (Auto) 0.38 (0.11-0.59) K/uL Eos # (Auto) 0.08 (0-0.5) K/uL Baso # (Auto) 0.02 (0-0.2) K/uL Sodium 141 (136-145) mmol/L Potassium 3.3 L (3.5-5.1) mmol/L Chloride 110 H (98-107) mmol/L Carbon Dioxide 27 (21-32) mmol/L Anion Gap 4.0 (3-11) BUN 20 H (7-18) mg/dl Creatinine 1.18 (0.6-1.2) mg/dl Est Cr Clr Drug Dosing 59.9 ml/min Est GFR ( Amer) 61.4 Est GFR (Non-Af Amer) 53.0 BUN/Creatinine Ratio 16.7 (10-20) Glucose 137 H (70-99) mg/dl Calcium 9.1 (8.5-10.1) mg/dl Total Bilirubin 0.3 (0.2-1) mg/dl AST 17 (15-37) U/L ALT 24 (12-78) U/L Alkaline Phosphatase 109 (45-117) U/L Total Protein 6.9 (6.4-8.2) gm/dl Albumin 3.6 (3.4-5.0) gm/dl Globulin 3.3 (2.5-4.0) gm/dl Albumin/Globulin Ratio 1.1 (0.9-2) Urine Color Yellow Urine Appearance Clear (Clear) Urine pH 7.5 (4.5-7.5) Ur Specific [place] 1.014 (1.000-1.030) Urine Protein Negative (Negative) Urine Glucose (UA) Negative (Negative) Urine Ketones Negative (Negative) Urine Blood 2+ H (Negative) Urine Nitrite Negative (Negative) Urine Bilirubin Negative (Negative) Urine Urobilinogen Negative (Negative) Ur Leukocyte Esterase Trace H (Negative) Urine WBC (Auto) 5-10 H (0-5) /hpf Urine RBC (Auto) >30 H (0-4) /hpf U Hyaline Cast (Auto) 1-5 (0-5) /lpf U Epithel Cells (Auto) 10-20 H (0-5) /lpf Urine Bacteria (Auto) Negative (Negative) Imaging Data Radiologist's Impression: CT SCAN OF THE ABDOMEN AND PELVIS WITHOUT IV CONTRAST CLINICAL HISTORY: Left flank pain. COMPARISON STUDY: Abdominal CT dated 09/22/2019. TECHNIQUE: CT scan of the abdomen and pelvis is performed from the lung bases to the proximal femora. Images are reviewed in the axial, sagittal, and coronal planes. IV contrast was not administered for this examination as per the referring clinician. A dose lowering technique was utilized adhering to the principles of ALARA. CT DOSE: 675.35 mGy.cm FINDINGS: Lung bases: The heart is normal in size and without pericardial effusion. There is elevation of the right hemidiaphragm and bibasilar atelectasis. No airspace consolidation or pleural effusion is seen. A small hiatal hernia is noted. Liver: The unenhanced liver is normal in size, contour, and attenuation. There is mild central intrahepatic biliary ductal dilatation. A 1.5 cm cyst is noted i n the left lobe. Gallbladder: Surgically absent noting clips in the gallbladder fossa. Spleen: Normal in size and attenuation. Pancreas: Unremarkable. Adrenal glands: Unremarkable. Kidneys: The unenhanced kidneys are normal in size. The left kidney is edematous. There is a 6 mm obstructing calculus protruding from the left vesicoureteral junction seen on image #[id number]. This causes moderate left-sided hydroureteronephrosis. There is associated left-sided perinephric and peripelvic stranding/fluid. There are numerous additional small nonobstructing calculi present in both kidneys which measure up to 5 mm. There is no right-sided hydronephrosis. There is no evidence of contour deforming renal mass lesion. A circumaortic left renal vein is again noted. Abdominal vasculature: The abdominal aorta is normal in course and caliber noting scattered foci of atherosclerotic calcification. Bowel: There is no bowel obstruction. The appendix is well-visualized and normal. Peritoneum: There is no intraperitoneal free air or abdominal ascites. There is a fat-containing umbilical hernia. Lymphadenopathy: None. Pelvic viscera: The bladder is normal as visualized. The uterus is surgically absent. Left ovarian follicles measure up to 3.1 cm. Skeletal structures: No lytic or blastic lesions are seen. There is lumbosacral spondylosis with postoperative change from laminectomy and posterior fusion at L4-L5. IMPRESSION: 1. There is a 6 mm obstructing calculus protruding from the left vesicoureteral junction. This causes moderate left hydroureteronephrosis. 2. There are numerous additional nonobstructing calculi present in both kidneys. 3. Additional findings as above. MDM Narrative Physical exam and history were performed. Nursing notes, EMR, and Medication List were personally reviewed. Patient appears to have severe left flank pain bringing her to the ER. On evaluation she appears in significant discomfort. She is crying and splinting her left flank. IV access was established and labs were obtained. She was given IV Toradol, IV morphine, and IV fluids, and IV Zofran. She was sent to CT scan for imaging. The patient's blood work is as above and was reviewed. She does not have a significantly elevated white blood cell count, gross anemia, or significant electrolyte imbalance. Urine is with blood but no obvious infection. CT scan is as above and was reviewed by myself and radiology. CT scan does show an obs tructing 6 mm left ureteral calculi with hydronephrosis. This would correlate with the patient's symptoms. On reevaluation the patient did have improvement of her pain after medication. She no longer appears in severe discomfort. I discussed options of care with the patient, who does not seem well for discharge home. She has a fairly large obstructing stone and will likely need further intervention for removal. The case was discussed with the on-call hospitalist team who agreed to evaluate the patient here in the ER. Please see their dictation for further patient course, plan, disposition. The chart was completed utilizing [employer] Voice [employer]ognition Software. Grammatical errors, random word insertions, pronoun errors, and incomplete sentences are an occasional consequence of this system due to software limitations, ambient noise, and hardware issues. Any formal questions or concerns about the content, text, or information contained within the body of this dictation should be directly addressed to the provider for clarification. . Impression & Plan Left ureteral calculus, Hydronephrosis with renal and ureteral calculous obstruction Discharge Plan Visit Data *Final* Discharge Date/Time: 12/31/19 06:07 Chief Complaint: Kidney Stone Stated Complaint: KIDNEY STONE ED Provider: Juvenal Yun ED Midlevel Provider: Jordan Matos Discharge Problem: Left ureteral calculus, Hydronephrosis with renal and ureteral calculous obs truction Patient Disposition: Admitted As Inpatient Discharge Instructions Interventions: ED Discharge Assessment Last Done: 12/31/19 06:07
[2020-01-01] MEDS: FAMOTIDINE 20 MG in SYRINGE 3 ML IV SCH (07:17)
[2020-01-01] MEDS: CHECK SCOPOLAMINE PATCH PLACEMENT SCH (07:30)
[2020-01-01] MEDS: CIPROFLOXACIN 400 MG/200 ML BAG IV SCH (07:30)
[2020-01-01] MEDS: TAMSULOSIN HCL 0.4 MG CAP PO SCH (08:39)
[2020-01-01] MEDS: GABAPENTIN 600 MG TAB PO SCH (08:39)
[2020-01-01 09:10] LABS: BUN Creatinine Ratio 14.2 (10-20); Calcium 8.8 mg/dl (8.5-10.1); Creatinine Clr Calc Pharmacy 69.4 ml/min; Est GFR (African American) 73.2; Est GFR (Non-African American) 63.2; Potassium 3.6 mmol/L (3.5-5.1)
--- NOTE | 2020-01-01 09:59 | Discharge Summary ---
Date of Service January 01, 2020 Admission HPI Per Admitting Provider Chief Complaint: The patient presents to the emergency department with complaint of left flank and lower abdomen and pelvic pain, with having had a KUB done as an outpatient which showed a 2.5 mm left ureteral stone. Primary Care Provider: Tamera Swenson MD The patient is a 54-year-old female with a past medical history including kidney stones, mixed incontinence, chronic UTIs, incomplete bladder emptying, h ysterectomy, foot surgery, , spinal fusion, allergic rhinitis, anxiety, benign essential hypertension, idiopathic peripheral neuropathy and mild mitral regurgitation. She presents to the emergency department with an outside KUB performed which showed an approximate 2.5 mm left ureteral stone as a cause of her left flank and lower abdominal and pelvic pain. She follows with Dr. Corbin from urology for routine urologic care, and reports that her last kidney stone was about the year 2005 or . Admission Exam Per Admitting Provider The patient is awake, alert and oriented 3, well developed and well nourished, normocephalic and atraumatic, lying in bed and in no acute distress. HEENT--PERRL, EOMI, mucous membranes and oropharynx dry. Neck--supple. No JVD. No bruits. Thyroid normal, trachea midline, no adenopathy. Heart--normal S1 and S2. No murmurs, rubs or gallops. Lungs--clear bilaterally, no respiratory distress, no accessory muscle use. Abdomen--normal bowel sounds and soft. Nontender. Nondistended. Extremities--no cyanosis or clubbing. No edema. There are good distal pulses b/l. Dermatologic--normal skin turgor, normal color, no abnormal lymph nodes, no rash. Neurologic--cranial nerves II through XII grossly intact. Rheumatologic--normal range of motion. Psychiatric--normal affect. Principal Diagnosis Left ureteral calculus Discharge Exam Constitutional WD/WN, vitals as above no acute distress Eyes PERRL, conjunctivae normal, anicteric sclerae ENMT Ears: no hearing impairment and no EAC abnormality Neck trachea midline, no thyromegaly Respiratory normal respiratory effort, lungs clear to auscultation Cardiovascular RRR, no murmur, no edema Gastrointestinal (Abdomen) normal bowel sounds, soft, nontender, no hepatosplenomegaly Musculoskeletal no cyanosis or clubbing, extremities motor strength 5/5 Skin no rashes, warm and dry Neurologic PERRL, EOMI, accommodation nl, no face palsy, no dysarthria Psychiatric A+Ox3, euthymic affect Lymphatic no cervical or axillary lymphadenopathy Discharge Data Allergies Allergy/AdvReac Type Severity Reaction Status Date / Time nitrofurantoin Allergy Severe Hives,SOB Verified 12/31/19 02:33 [From Macrobid] fexofenadine [From Lisa-D] Allergy Intermediate Hypertensio Verified 12/31/19 02:33 n Penicillins Allergy Intermediate HIVES Verified 12/31/19 02:33 pseudoephedrine Allergy Intermediate Hypertensio Verified 12/31/19 02:33 [From Lisa-D] n sulfamethoxazole Allergy Intermediate Nausea Verified 12/31/19 02:33 [From Bactrim] trimethoprim [From Bactrim] Allergy Intermediate nausea, Verified 12/31/19 02:33 diarrhea meperidine AdvReac Mild VOMITING Verified 12/31/19 02:33 Consultations 12/31/19 04:37 ED Decision to Admit Stat 12/31/19 06:25 Consult Case Management - Discharge Planning Routine Consult Urology Routine Procedures Performed Operation Date: 12/31/19 10:15 Actual Procedures p Cystoscopy, left ureteroscopy, laser lithotripsy, left ureteral stent insertion(Left) - Jordi Haley MD Ordered Studies 12/31/19 02:15 CT abd pelvis wo con Urgent 12/31/19 09:42 FL retrograde includes kub Routine Hospital Course (1) Calculus of distal left ureter: * CT with 6 mm obstructing calculus protruding from the LVJ with moderate L hydroureteronephrosis; numerous additional nonobstructing calculi in b/l kidneys * Urology consulted. Flomax. * s/p Cystoscopy, left ureteroscopy, laser lithotripsy, left ureteral stent insertion(Left) with Dr. Haley on U * Cx from 12/27 - outpatient was coag neg mc (no urinalysis to actually see if a lot of epithelial cells present); UA on admission without bacteria -- Has been on Ciprofloxacin - discussed with Urology. No need for further abx * Stent accidently removed by patient while urinating morning of 12/31. No further issues * Follow up with Urology in January Discharged home (2) Hydronephrosis of left kidney: * See above (3) Anxiety: * Chronic. Stable. Continued Lexapro 10 mg HS (4) Benign essential hypertension: * STABLE * Continued metoprolol succinate 12.5 mg HS (5) Idiopathic peripheral neuropathy: * -Chronic. Stable. Continued home gabapentin 600mg BID Total Time Total Time Spent Total Time Spent (In Minutes): 35 Discharge Plan Discharge Items Patient Disposition: Home - Self-Care Reason For Visit: LEFT UVJ STONE WITH MOD L HYDRONEPHROSIS Discharge Diagnosis: Left Sided kidney stone with hydronephrosis Condition on Discharge: Good Health Concerns: You have been hospitalized for an urgent problem which required surgery. During your stay at [facility], we have made an effort to correct the problem that brought you to the hospital while keeping you as comfortable as possible. Surgery and medications were used to bring your condition under control and your discharge instructions will include directions for any medications you should take after leaving the hospital. Please make sure to follow the advice of your surgeon regarding follow up with the surgeon and with your primary care provider. Activity: Resume your previous activity Activity Comment: increase activity as tolerated Non-emergency contact: Primary Care Provider Call non-emergency contact if: you have any medication questions, your symptoms worsen, your pain is not controlled and you have a fever Follow-up/Referrals: Jordi Haley MD [Physician] - (In January for routine follow up) Tamera Swenson MD [Primary Care Provider] - Diet: Heart Healthy Addtl Attending Provider Instructions: You have been treated for a kidney stone by Urology. Per urology, you do not need any further antibiotics at this time. You tolerated procedure well and did not require anything for pain, and Urology does not feel that you will require anything for pain. If you have any pain while at home, you may use tylenol over the counter but do not exceed over 3,000mg in a 24 hour period of time (six 500mg tablets). You should avoid NSAIDs (ibuprofen, aleeve/naproxen) and aspirin over the next week to prevent any bleeding. You may also use your tramadol as needed for breakthrough pain. You will have follow up with Urology in January with Dr. Haley. Please continue to stay well hydrated. You may continue to utilize lemonade/rodolfo for possible help dissolution of remaining stones. Please return to the emergency room if you have any worsening pain, continued blood in your urine, fever or for any symptoms that are concerning for you. Please follow up with your primary care provider in the next 5-7 days. It has been a pleasure being a part of the medical team providing for you while you have been in the hospital. Take care! Pending Studies at Discharge: Yes Studies:: Stone analysis Stand-Alone Forms: [facility] [employer], Opioid Pain Management, Smoking Cessation Medications and DC Order Prescriptions: Continued metoprolol succinate 25 mg tablet extended release 24 hr 12.5 mg PO HS Qty: 45 RF: 3 gabapentin 600 mg tablet 600 mg PO BID Qty: 180 RF: 1 escitalopram oxalate 10 mg tablet 10 mg PO HS Qty: 90 RF: 3 methenamine hippurate 1 gram tablet 1 gm PO DAILY Qty: 90 RF: 4 tramadol 50 mg tablet 50 mg PO TID PRN (Reason: pain) Qty: 14 RF: 0 cyclobenzaprine 10 mg tablet 10 mg PO TID PRN (Reason: Muscle Spasm) RF: 0 Discontinued ciprofloxacin HCl 500 mg tablet 500 mg PO BID 7 Days Qty: 14 RF: 0 tamsulosin 0.4 mg capsule 0.4 mg PO DAILY RF: 0 Discharge Orders: Discharge Order (Routine); Ordered 01/01/20 Ordered By: Izzy Mcknight/Other Patient Handouts: Surgery Prevent DVT After, Kidney Stones Nephrolithotomy, Kidney Stones Prevent, Cystography Retrograde Admission Data Admit Date/Time: 12/31/19 05:06 Attending Provider: Dominick Barnett Admit Provider: González Armas Primary Care Provider: Tamera Swenson Other Providers: Jordi Haley ; González Armas Other Interventions: Discharge Summary Assessment (RN) Last Done: 01/01/20 07:09 DC Date/Time DO NOT enter until pt leaves facility: 01/01/20 11:20 Coding Level of Care Code D/C Day Management >30 mins Diagnoses Calculus of distal left ureter N20.1 Hydronephrosis of left kidney N13.30 Anxiety F41.9 Benign essential hypertension I10 Idiopathic peripheral neuropathy G60.9
--- NOTE | 2020-01-01 10:00 | Urology Progress Note ---
Date of Service January 01, 2020 Assessment & Plan (1) Left ureteral calculus: Status post ureteroscopy and laser lithotripsy Stent removed this morning Feeling very well Plan for discharge home todayno antibiotics or pain medications required Subjective Did very well overnight No major issues Stent removed this morningfeels very well now, no pain, no dysuria Physical Exam Constitutional: well developed and well nourished Respiratory: no respiratory distress Cardiovascular: Extremities: no pedal edema Gastrointestinal (Abdomen): Inspection/Auscultation: abdomen normal to inspection Results & Data Vital Signs (Past 12 Hours) Vital Signs Temp Pulse Pulse Resp BP Pulse Ox 01/01/20 07:09 36.8 C 69 65 16 107/59 L 97 01/01/20 07:05 36.8 C 66 16 127/73 97 01/01/20 03:50 36.8 C 69 16 107/59 L 97 12/31/19 22:59 36.8 C 68 16 106/67 93 PG Care Time/CCT Total # of Minutes Spent Total Time Spent with Patient: Total time spent is greater than 50% in coordination of care (as documented) at patient's floor/unit and/or counseling patient: Coding Level of Care Code 64053 Subseq Hosp Care Lvl 2 Diagnoses Left ureteral calculus N20.1
== END 2020-01-01 11:20 | disposition home or self-care (01) | DRG 661 ==
LOC: ED 01:37 → 3W 05:06 → SUATTDRO 05:06 → 3W 06:07